=== PATIENT | male | born 1945 | race Caucasian/White ===

== ENCOUNTER 2018-05-08 13:34 | Inpatient (IN) | payer OTHER, MEDICARE ==
[~2018-05-08] VITALS: Ht 175.3 cm; Wt 98.6 kg
[2018-05-08 14:16] LABS: BASOPHILS ABSOLUTE AUTO 0.07 K/mm3 (0.00-0.23); BASOPHILS PERCENT AUTO 1 % (0-2); EOSINOPHILS ABSOLUTE AUTO 0.18 K/mm3 (0.00-0.68); EOSINOPHILS PERCENT AUTO 1 % (0-6); Hematocrit 46.2 % (37.0-53.0); Hemoglobin 15.1 g/dL (13.5-17.5); IMMATURE GRAN ABSOLUTE AUTO 0.05 K/mm3 (0.00-0.10); IMMATURE GRAN PERCENT AUTO 0 % (0-1); LYMPHOCYTES ABSOLUTE AUTO 1.45 K/mm3 (0.84-5.20); LYMPHOCYTES PERCENT AUTO 11 % (21-46); MONOCYTES ABSOLUTE AUTO 0.87 K/mm3 (0.16-1.47); MONOCYTES PERCENT AUTO 7 % (4-13); Mean Corpuscular HGB Conc 32.7 g/dL (31.5-36.5); Mean Corpuscular Volume 95 fL (80-100); Mean Platelet Volume 8.7 fL (9.1-12.4); NEUTROPHILS ABSOLUTE AUTO 10.51 K/mm3 (1.96-9.15); NEUTROPHILS PERCENT AUTO 80 % (41-73); Platelet Count 253 K/mm3 (150-400); RDW Coefficient Variation 12.9 % (11.7-14.2); RDW Standard Deviation 45.5 fL (35.1-46.3); Red Blood Cell Count 4.87 M/mm3 (4.30-5.90); White Blood Cell Count 13.13 K/mm3 (4.00-11.30)
[2018-05-08 14:28] LABS: International Normalized Ratio 1.06; Prothrombin Time Results 10.9 Sec (9.7-11.5)
[2018-05-08 14:37] LABS: Anion Gap 7 mmol/L (6-16); Blood Urea Nitrogen 15 mg/dL (8-24); Bun/Creatinine Ratio 16.7 (12.0-20.0); CO2, Blood 26 mmol/L (21-32); Calcium, Blood 8.4 mg/dL (8.5-10.1); Chloride, Blood 105 mmol/L (98-108); Glomerular Filtration Rate >60 (60-); Glucose, Blood 96 mg/dL (70-99); Potassium, Blood 4.3 mmol/L (3.5-5.5); Sodium, Blood 138 mmol/L (136-145)
[2018-05-08 14:47] LABS: Troponin I 0.654 ng/mL (0.000-0.040)
--- NOTE | 2018-05-08 17:33 | NUR ---
echocardiogram complete
--- NOTE | 2018-05-09 06:02 | NUR ---
SHIFT SUMMARY PT ALERT AND ORIENTED X 3 THROUGHOUT SHIFT. HE SLEPT OFF AND ON DURING THE NIGHT AND WOKE EASILY FOR VITALS AND ASSESSMENTS. PT DENIED ANY UNMET NEEDS DURING THE NIGHT AND DEMONSTRATED APPROPRIATE USE OF HIS CALL LIGHT. PT CALL LIGHT LEFT WITHIN EASY REACH. HE REMAINED INDEPENDENT IN THE ROOM, DENIED ANY NEW OR WORSENING CHEST PAIN AND REMAINED PLEASANT AND COOPERATIVE WITH VITALS AND ASSESSMENTS. PT HAD NO ACUTE CHANGES TO MENTATION OR LOC, BUT DID HAVE SOME CHANGE TO HIS TROPONIN. HE HAD A 5.010 TROP LEVEL WITH LABS THIS AM. PT HAS 2X SIDE RAILS IN PLACE, BED IN THE LOWEST POSITION AND NON SLIP SOCKS ON FOR SAFETY. HE WILL CONTINUE TO BE MONITORED UNTIL HANDOFF TO DAYSHIFT RN.
--- NOTE | 2018-05-09 08:01 | NUR ---
Consent for care Obtained consent from pt to assist in care with primary RN for date of service 05/09/18.
--- NOTE | 2018-05-09 17:02 | NUR ---
NURSING PCU DISCHARGE/COBRA TRANSFER SUMMARY: No acute changes noted t/o the a.m. Pt continued to c/o 2-3/10 CP since admission. Troponin results received w/a level of 19.7, pageant director notified, new d/o received. Pt remained NPO t/o the a.m. until seen by cardio, planned for angiogram this afternoon. Transfer to at approx 1330 for angio, returned to the room at approx 1430 w/plans for cobra xfer. Accepting doctor and room assignment received, telephone report provided to accepting RN. Pt xferred from hospital via ambulance transport at approx 1700, all questions and concerns addressed, no s/s of acute distress at time of transportation.
== END 2018-05-09 17:03 | disposition short-term general hospital (02) | DRG 282 ==
LOC: ER 13:34 → PCU 15:41
PROVIDERS: Emergency Medicine; ADMIT Hospitalist
PROC: B2111ZZ Fluoroscopy of Multiple Coronary Arteries using Low Osmolar Contrast (ICD-10-PCS; principal; 2018-05-09)
DX: I21.4 Non-ST elevation (NSTEMI) myocardial infarction (principal); I25.10 Atherosclerotic heart disease of native coronary artery without angina pectoris; G47.33 Obstructive sleep apnea (adult) (pediatric); Z95.5 Presence of coronary angioplasty implant and graft
CPT/HCPCS: 36415; 80048; 83036; 84484; 85025; 85610; 85730; 93005; 93010; 93306; 93458; 96365; 99152; 99153; 99285-25; C1769; C1894; J1644; J2250; J3010; J7030; Q9967